=== PATIENT | female | born 1950 | race Caucasian/White ===

== ENCOUNTER 2019-09-24 18:40 | Inpatient (IN) | payer MEDICARE, MEDICAID ==
[~2019-09-24] VITALS: Ht 165.1 cm; Wt 54.4 kg
--- NOTE | 2019-09-24 19:15 | NUR ---
Dr. Gomez at bedside for MSE.
--- NOTE | 2019-09-24 19:30 | NUR ---
Patient refusing bloodwork, Xray, EKG. made aware.
--- NOTE | 2019-09-24 20:40 | NUR ---
Spoke with nursing casino operations supervisor of [facility] due to no labs and diagnostic work sent with the patient's file, states unable to access patient's chart and that medical records is closed until Thursday. ER MD made aware.
--- NOTE | 2019-09-24 20:50 | NUR ---
Dr. Gomez speaking with Dr. Molina of [facility].
--- NOTE | 2019-09-24 21:00 | NUR ---
Dr. Gomez on panel call with Greg Nicolas LUGGER. Patient accepted for admission [facility], diagnosis: altered mental status.
--- NOTE | 2019-09-24 21:38 | NUR ---
Pt provide urine sample, sent to lab.
[2019-09-24] MEDS ORDERED: QUETIAPINE FUMARATE 25 MG TABLET ONE (22:35)
[2019-09-24] MEDS ORDERED: QUETIAPINE FUMARATE 25 MG TABLET PO ONE (22:45)
--- NOTE | 2019-09-24 22:47 | NUR ---
Report given to Vickie GARCIA Medsurg.
--- NOTE | 2019-09-24 23:15 | NUR ---
RECEIVED PATIENT VIA GURNEY FROM ER. PATIENT IS A/O X2. UPSET WHY SHE IS HERE IN THE HOSPITAL. RECEIVED REPORT THAT PATIENT REFUSED, LABS/BLOOD WORK, EKG, ETC. ABIGAIL BHANDARI, NOTIFIED. PATIENT DENIES ANY PAIN OR DISCOMFORT. NO RESP. DISTRESS NOTED. NO HEPLOCK NOTED. PATIENT REFUSING FOR INSERTION. MD AWARE. 1:1 SITTER AT BEDSIDE FOR SAFETY. PATIENT IS HIGH AWOL RISK. ALL NEEDS ATTENDED. WILL CONTINUE TO MONITOR AND ASSESS.
[2019-09-24 23:45] VITALS: BP 174/82
[2019-09-24] MEDS ORDERED: MAGNESIUM HYDROXIDE 30 ML LIQUID UDC PO PRN (23:45)
[2019-09-24] MEDS ORDERED: HYDROCODONE/APAP 5-325MG TABLET PO PRN (23:45)
[2019-09-24] MEDS ORDERED: ONDANSETRON 4 MG/2 ML VIAL IV PRN (23:45)
[2019-09-24] MEDS ORDERED: HALOPERIDOL LACTATE 5 MG/1 ML VIAL IM PRN (23:45)
[2019-09-24] MEDS ORDERED: ACETAMINOPHEN 325 MG TABLET PO PRN (23:45)
[2019-09-24] MEDS ORDERED: TEMAZEPAM 15 MG CAPSULE PO PRN (23:45)
[2019-09-24] MEDS ORDERED: Z GUARD REMEDY PASTE 57 GM TUBE TOP PRN (23:45)
--- NOTE | 2019-09-24 23:45 | NUR ---
ABIGAIL-DENTAL NURSE AT BEDSIDE TO ASSESS PATIENT. PATIENTS BLOOD PRESSURE 174/83. DENTAL NURSE AT BEDSIDE TO TALK TO PATIENT. PATIENT IS REFUSING TO TAKE ANY MEDICATIONS OR LAB WORK. WILL CONTINUE TO MONITOR AND ASSESS.
[2019-09-25] MEDS ORDERED: LORAZEPAM 2 MG/1 ML VIAL IM PRN
--- NOTE | 2019-09-25 | NUR ---
PATIENT VERY AGITATED, VERY AGGRESSIVE AND BECAME COMBATIVE WITH SITTER AND STAFF WHEN APPROACHED. PATIENT IS DELUSIONAL. DR. MESA NOTIFED.
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
--- NOTE | 2019-09-25 00:15 | NUR ---
PATIENT GIVEN HALDOL 5MG IM AND ATIVAN 1MG IM PER LABORER SHIPYARD FOR SEVERE AGITATION. SITTER AT BEDSIDE. PATIENT STILL VERY DELUSION AND HAVING PARANOID IDEATIONS. BED ALARM ON. WILL CONTINUE TO MONITOR AND ASSESS.
--- NOTE | 2019-09-25 01:04 | NUR ---
PATIENT QUIET IN BED. SITTER AT BEDSIDE. WILL CONTINUE TO MONITOR AND ASSESS.
--- NOTE | 2019-09-25 01:15 | NUR ---
PATIENT REFUSING TO WEAR TELE MONITOR. PATIENT IS CONFUSED, STATING HER FAMILY WHO OWNS THE HOSPITAL IS GOING TO [place] ALL OF US. PATIENT IS IN AND OUT OF CONFUSION. VERY AGITATED WHEN APPROACHED. ALL NEEDS ATTENDED.
--- NOTE | 2019-09-25 01:37 | NUR ---
PATIENT ASLEEP IN BED. TELE MONITOR PLACED ON PATIENT, SB 58. WILL CONTINUE TO MONITOR AND ASSESS.
[2019-09-25 02:36] LABS: BASOPHILS % (AUTO) 0.6 % (0.0-2.0); EOSINOPHILS # (AUTO) 0.1 K/uL (0.0-0.7); EOSINOPHILS % (AUTO) 3.5 % (0.0-7.0); HEMATOCRIT 34.3 % (31.2-41.9); HEMOGLOBIN 11.5 g/dL (10.9-14.3); LYMPHOCYTES # (AUTO) 1.4 K/uL (20.0-40.0); LYMPHOCYTES % (AUTO) 38.7 % (20.5-51.5); MEAN CORPUSCULAR HEMOGLOBIN 27.7 uug (24.7-32.8); MEAN CORPUSCULAR HGB CONC 34 g/dL (32.3-35.6); MEAN CORPUSCULAR VOLUME 82.3 fL (75.5-95.3); MONOCYTES # (AUTO) 0.3 K/uL (2.0-10.0); NEUTROPHILS # (AUTO) 1.8 K/uL (1.8-8.9); NEUTROPHILS % (AUTO) 49.2 % (38.5-71.5); PLATELET COUNT (AUTO) 187 K/uL (179-408); RED BLOOD CELL COUNT(AUTO) 4.16 MIL/uL (3.63-4.92); WHITE BLOOD COUNT (AUTO) 3.6 K/uL (3.8-11.8)
[2019-09-25 02:42] LABS: BILIRUBIN,TOTAL 0.3 mg/dL (0.2-1.0); CREATININE 0.7 mg/dL (0.6-1.3); MAGNESIUM 1.9 mg/dL (1.8-2.4); PHOSPHOROUS 3.6 mg/dL (2.5-4.9); POTASSIUM 3.8 mmol/L (3.5-5.1)
[2019-09-25 05:00] VITALS: BP 107/53
[2019-09-25 05:16] LABS: THYROID STIMULATING HORMONE 3.816 mIU/mL (0.358-3.740)
--- NOTE | 2019-09-25 06:24 | NUR ---
PATIENT ASLEEP IN BED. SITTER AT BEDSIDE. VSS. WILL CONTINUE TO MONITOR.
[2019-09-25] MEDS ORDERED: PANTOPRAZOLE SODIUM 40 MG TABLET.DR PO SCH (07:00)
--- NOTE | 2019-09-25 07:20 | NUR ---
RECEIVED PATIENT IN BED COVERING HERSELF WITH SHEETS WITH 1:1 SITTER AT BEDSIDE. NO S/S OF ACUTE DISTRESS NOTED, SAFETY AND COMFORT PROVIDED AT ALL TIMES. WILL CONTINUE TO MONITOR.
[2019-09-25] MEDS ORDERED: METOPROLOL TARTRATE 25 MG TABLET PO SCH (09:00)
[2019-09-25] MEDS ORDERED: OLANZAPINE 5 MG TABLET PO SCH (09:00)
--- NOTE | 2019-09-25 09:30 | NUR ---
PHYSICAL THERAPY ATTEMPT BUT PATIENT REFUSED
[2019-09-25 10:00] VITALS: BP 153/62
--- NOTE | 2019-09-25 10:15 | NUR ---
PATIENT CONSUMED 100% OF BREAKFAST
--- NOTE | 2019-09-25 10:20 | NUR ---
EKG ATTEMPTED AND PATIENT REFUSED.
--- NOTE | 2019-09-25 11:31 | NUR ---
radiological technologist went and requested the patient for Duplex Venous Scan but the patient refused. RADHA Velasco noted. RADHA Velasco will call the tech if the patient changes her mind.
[2019-09-25] MEDS ORDERED: METO25TA6 PO (12:01)
--- NOTE | 2019-09-25 14:50 | NUR ---
RECEIVED DISCHARGE ORDER TO MHU , INSTRUCTION GIVEN AND VERBALIZED UNDERSTANDING, NO SOB NOTED AND NO C/O PAIN AT THIS TIME. BELONGINGS ACCOUNTED FOR AND SIGNED, ID BAND REMOVED. GAVE REPORT TO KAMILLE IN MHU, ESCORTED PATIENT TO MHU VIA WHEELCHAIR.
[2019-09-25] MEDS ORDERED: MIRTAZAPINE 15 MG TABLET PO SCH (21:00)
[2019-12-16] MEDS ORDERED: METO25TA6 PO ×2 (15:11→15:13)
[2019-12-17] MEDS ORDERED: ACET325T53 PO (13:37)
[2019-12-17] MEDS ORDERED: PANT40TA2 PO (13:37)
[2019-12-17] MEDS ORDERED: METO25TA6 PO (13:37)
[2019-12-17] MEDS ORDERED: AZIT250T13 PO (13:37)
== END 2019-09-25 14:50 | DRG 305 ==
LOC: ER 18:44 → MEDSURG3 22:43 → TELE3 23:55
PROVIDERS: ADMIT Hospitalist; ATTEND Hospitalist
DX: I16.9 Hypertensive crisis, unspecified (principal); E78.5 Hyperlipidemia, unspecified; Z59.0 Homelessness; R60.0 Localized edema; Z91.19 Patient's noncompliance with other medical treatment and regimen; Z91.14 Patient's other noncompliance with medication regimen; F32.9 Major depressive disorder, single episode, unspecified; I10 Essential (primary) hypertension
CPT/HCPCS: 36415; 70030-TC; 71045; 83735; 84100; 84443; 85025; 85610; 85730; 87086; 93005; A4663; G0378; J1630; J2060

== ENCOUNTER 2019-09-25 15:36 | Inpatient (IN) | payer MEDICARE, OTHER ==
[~2019-09-25] VITALS: Ht 157.5 cm; Wt 55.3 kg
[2019-09-25 15:00] VITALS: BP 138/79
--- NOTE | 2019-09-25 15:00 | NUR ---
Admit Note; Patient is a 69 year old female, brought in to the hospital by ambulance, admitted on a 5150 from [facility]. Patient is admitted on a 5150 as Danger to others. Per hold, Frequent calls were made 911 reporting false emergencies that patient believed are real. Call regarding rapes, kidnappings in progress and other reports that require lights and siren response. At times more than 20 calls per day were made. Patient has severe hallucinations, hears voices, and is paranoid. Upon face to face evaluation patient is irritable, delusional and noncompliant with the admission process. Patient has poor eye contact and mood is angry and demanding. Attention span is poor and patient is unable to follow simple instructions. Physically appears dirty and malodorous. Patient was oriented to the environment and received the patients rights handbook. VS are normal and pedal edema noted . Patient ambulatory with a steady gait. No acute issues or distress noted at this time.
--- NOTE | 2019-09-25 15:00 | NUR ---
Gps/Field Marketing Lead-Received from telemetry unit (3rd floor) via wheel chair, alert,oriented x 2 labile mood ,irritability during admission noted, unable to provide and get necessary informations.r/t to behavior , irritability ,yelling, angry affect., uncooperative during admission Patient came in with 3 large trash bags(belongings) , and 1 large black suit case, and a guitar will keep the the tub room for now . No banquet set up person provided, Patient is ambulatory noted steady gait.
[2019-09-25] MEDS ORDERED: BLOOD SUGAR DIAGNOSTIC 1 EACH STRIP VI ONE (15:45)
[2019-09-25] MEDS ORDERED: MAGNESIUM HYDROXIDE 30 ML LIQUID UDC PO PRN (15:45)
[2019-09-25] MEDS ORDERED: TEMAZEPAM 7.5 MG CAPSULE PO PRN (15:45)
[2019-09-25] MEDS ORDERED: ACETAMINOPHEN 325 MG TABLET PO PRN (15:45)
[2019-09-25] MEDS ORDERED: MAG HYDROX/AL HYDROX/SIMETH 30 ML LIQUID UDC PO PRN (15:45)
--- NOTE | 2019-09-25 17:00 | NUR ---
Gps/Lvnn- Patient refused blood sugar check. Needy, kept asking to look for numbners in the computer, informed if not urgent, will try to help later, pt. verbalized anger, wanting staff to hekp her right away.
[2019-09-25 21:12] VITALS: BP 125/66
--- NOTE | 2019-09-25 22:00 | NUR ---
received to care, lying in bed, guarded, but pleasant upon approach. cell phone with folding machine setter found in pts possession; she willingly gave it to staff to log in as valuables/contraband. she was isolative, staying in room, and not interacting with peers or staff. PRN medication offered for insomnia, but she refused. as of 2199, she is asleep. no distress noted. will continue to monitor closely
--- NOTE | 2019-09-26 06:00 | NUR ---
slept 8.75 hours, total. was up during the night, and had a sandwich. a sof 05 Addendum: 09/26/19 at 0627 by REGGIE RODRIGUEZ LVN as of 0600, she continues to sleep. no distress noted.
--- NOTE | 2019-09-26 06:32 | NUR ---
refused am lab draw.
[2019-09-26 07:30] VITALS: BP 145/70
--- NOTE | 2019-09-26 10:06 | NUR ---
Chief Mate consultation requested by Dr. Greg Nicolas on 09/25/2019 and received by this SW today, 09/26/2019. U bilingual social worker Vanesa to follow up.
[2019-09-26] MEDS: QUETIAPINE FUMARATE 25 MG TABLET PO SCH ×3 (10:41→21:11)
--- NOTE | 2019-09-26 11:29 | NUR ---
Social Work/Initial Discharge Plan: Patient is currently homeless and initially did not want any longterm placement. Patient may be considerate of an open (not locked) longterm facility or assisted. SW will continue to work with patient and MD to ensure a safe and proper discharge plan.
--- NOTE | 2019-09-26 11:30 | NUR ---
Social Work/Family Contact: Patient gave this proposal manager writer a phone number for a friend/Chiropractor by the name of Ariella Mcallister ([phone]). This proposal manager writer spoke with Ariella's human resources office assistant, Katerine, who stated that they have known the patient for over 30 years, and she indeed was Ariella's childhood friend. It was confirmed that the patient is homeless and has been having delusional and paranoid thoughts fro many years since her 's passing. Katerine stated that the patient's daughter at age 15 years from becoming ill due to the patient living on the streets with her daughter for several years. Katerine stated that the patient remarried after her and moved to [place] for some times and had another daughter with her and has not seen her since they . Katerine stated that the patient's siblings and two living daughters want nothing to do with her and have not spoken or seen her for a long time.
--- NOTE | 2019-09-26 11:35 | NUR ---
Social Work Note/Family Contact: Patient gave this production underwriter a couple phone numbers to call as support. 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 ([phone]): This number was for a friend named Chastity. 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 Chastity was unable to give any of the patent's family contacts due to not having them.
--- NOTE | 2019-09-26 11:40 | NUR ---
Social Work/Firearms Report (DOJ): Nailhead Setter completed and submitted a [employer] firearms report for 5150 danger to others certification. A copy of report has been placed in patient chart.
[2019-09-26 15:22] VITALS: BP 151/63
[2019-09-26 16:00] LABS: *BILIRUBIN,URIN NEGATIVE (NEGATIVE); *CLARITY,URINE CLEAR (CLEAR); *COLOR,URINE YELLOW (YELLOW); *KETONES,URINE NEGATIVE (NEGATIVE); *UROBILINOGEN,URINE 0.2 E.U./dl (NORMAL); LEUKOCYTE ESTERASE ,URINE TRACE (NEGATIVE); NITRITE, URINE NEGATIVE (NEGATIVE); PH,URINE 6.5 (5.0-8.0); UGLUCOSE NEGATIVE (NEGATIVE)
[2019-09-26 16:02] LABS: *BLOOD, URINE NEGATIVE (NEGATIVE)
[2019-09-26 16:12] LABS: BACTERIA,URINE NONE SEEN /HPF (NONE SEEN); MUCUS,URINE MODERATE /LPF (0-FEW); RBC,URINE 0-3 /HPF (0-3); SQUAMOUS EPITHELIAL CELL,UR MODERATE /HPF (NONE SEEN); URINE AMORPHOUS URATE FEW /HPF; WBC,URINE 0-3 /HPF (0-3)
[2019-09-26 16:15] LABS: *AMPHETAMINE, URINE NEGATIVE (NEGATIVE); *BARBITURATE, URINE NEGATIVE (NEGATIVE); *CANNABINOID, URINE NEGATIVE (NEGATIVE); *COCCAINE, URINE NEGATIVE (NEGATIVE); *OPIATE, URINE NEGATIVE (NEGATIVE); *PHENCYCLIDINE SCREEN,URINE NEGATIVE (NEGATIVE)
[2019-09-26] MEDS: METOPROLOL TARTRATE 25 MG TABLET PO SCH (20:49)
[2019-09-26 20:50] VITALS: BP 146/71
--- NOTE | 2019-09-26 22:00 | NUR ---
received to care, lying in bed, isolative, but pleasant when approached. she initially refused to take her seroquel, but eventually took it, with some encouragement. as of 2199, she remains awake, intermittently talking to herself. appears distracted by internal stimuli. currently eating a snack. no distress noted. will continue to monitor closely.
--- NOTE | 2019-09-26 23:55 | NUR ---
pt has been agitated, coming to the nurses station, every so often to report that her daughter in in the next room to her, requesting that they be moved together. reality orientation was attempted, but she remains fixed in her beliefs. PRN for insomnia or anxiety were offered, but she declined to take. currently lying in bed, talking to self. no distress noted.
--- NOTE | 2019-09-27 00:30 | NUR ---
pt is finally asleep. had been talking to self, since last entry. no distress noted.
--- NOTE | 2019-09-27 06:00 | NUR ---
slept 6.25 hours, total. continues to sleep. no distress noted.
[2019-09-27 07:30] VITALS: BP 124/55
[2019-09-27] MEDS: QUETIAPINE FUMARATE 25 MG TABLET PO SCH ×2 (08:39→21:31)
[2019-09-27] MEDS: METOPROLOL TARTRATE 25 MG TABLET PO SCH ×2 (08:42→21:30)
[2019-09-27 17:08] VITALS: BP 133/70
[2019-09-27 19:59] VITALS: BP 125/71
--- NOTE | 2019-09-27 22:00 | NUR ---
received to care, isolative in room, but pleasant upon approach. compliant with medications, and staff direction. behavior is appropriate for situation. no bizarre behavior observed. as of 2199, she appears to be asleep. no distress noted. will continue to monitor closely.
[2019-09-28 07:30] VITALS: BP 126/63
[2019-09-28] MEDS: QUETIAPINE FUMARATE 25 MG TABLET PO SCH ×2 (08:59→20:12)
[2019-09-28] MEDS: METOPROLOL TARTRATE 25 MG TABLET PO SCH ×3 (09:00→21:00)
--- NOTE | 2019-09-28 13:53 | NUR ---
Social Work/Individual Counseling: SW met with patient today and provided brief individual supportive counseling and reinforce positive problem-solving skills. Patient demonstrated a better understanding of how to approach a problem, such as, when in help to ask someone. Patient presents easily agitated. SW provided redirection and alternate problem solving skills in order to not get agitated if pt receives an answer they do not prefer. Patient listened and presented oriented to the conversation. SW will remain available to the patient.
[2019-09-28 16:00] VITALS: BP 130/78
[2019-09-28 20:00] VITALS: BP 153/77
[2019-09-28] MEDS: LORAZEPAM 1 MG TABLET PO PRN (20:12)
[2019-09-29 07:30] VITALS: BP 140/66
[2019-09-29] MEDS: QUETIAPINE FUMARATE 25 MG TABLET PO SCH ×2 (08:34→20:19)
[2019-09-29] MEDS: METOPROLOL TARTRATE 25 MG TABLET PO SCH ×2 (08:37→20:20)
--- NOTE | 2019-09-29 08:38 | NUR ---
Social Work/Coordination of Care: SANGEETA faxed patient's referral packet to the following facilities with attention to Michael; [facility] ([phone]), [facility] ([phone]), [facility] ([phone]), [facility] ([phone]). Addendum: 10/06/19 at 0834 by BRYSON LAZAR Patient is accepted to [facility] upon discharge.
[2019-09-29 16:00] VITALS: BP 138/72
--- NOTE | 2019-09-29 16:23 | NUR ---
Patient is frequently at the nurses station agitated, angry, and arguing with nursing staff. Patient has been using unit telephone to call 911 and other healthcare facilities to report that staff and other patients on this unit are harming her. Patient has paranoid delusions, she believes that staff is purposely keeping her locked on this unit. Patient is provided with multiple efforts at reality orientation but she becomes more angry, intrusive, and agitated with staff. Patient has no insight into her mental illness. Despite multiple efforts attempts at education about impulse control, patient is not receptive to education and not agreeable to education.
[2019-09-29] MEDS: LORAZEPAM 1 MG TABLET PO PRN (16:45)
[2019-09-29 20:48] VITALS: BP 136/74
[2019-09-30 07:30] VITALS: BP 138/68
[2019-09-30] MEDS: METOPROLOL TARTRATE 25 MG TABLET PO SCH ×2 (08:13→20:47)
[2019-09-30] MEDS: QUETIAPINE FUMARATE 25 MG TABLET PO SCH ×2 (08:13→20:46)
--- NOTE | 2019-09-30 14:48 | NUR ---
PT FREQUENTLY REQUESTING PHONE. DOES NOT APPEAR TO HAVE ANY FAMILY OR FRIENDS. FREQUENTLY CALLS, 911, [facility], AND [facility]. RECEIVED MULTIPLE CALLS FROM [facility] TO PLEASE DO WHAT STAFF CAN TO RESTRICT PHONE CALLS DUE TO FREQUENT AND HARASSING PHONE CALLS FROM PT. SPOKE TO DR. CAVAZOS AND RECEIVED DENIAL OF RIGHTS OF TELEPHONE AT THIS TIME. PT CONTINUES TO BE QUITE AGITATED, FIXATED IN CALLING HER "DAUGHTER MONICA", BUT HER NUMBER IS THE [facility].
[2019-09-30 16:00] VITALS: BP 147/55
--- NOTE | 2019-09-30 18:02 | NUR ---
Pt noted highly agitated at this time. Paranoid and delusional. Quite grandiose at this times. States she owns the hospital, owns [place], and that her half brothers want to kill her to take over the multiple properties she has. Requires frequent redirection. frequently visible throughout unit, making multiple arbitrary complaints.
[2019-09-30 19:45] VITALS: BP 145/76
[2019-10-01 07:30] VITALS: BP 133/56
[2019-10-01] MEDS: QUETIAPINE FUMARATE 25 MG TABLET PO SCH ×2 (09:01→21:22)
[2019-10-01] MEDS: METOPROLOL TARTRATE 25 MG TABLET PO SCH ×2 (09:01→21:23)
[2019-10-01 16:00] VITALS: BP 118/63
[2019-10-01 20:02] VITALS: BP 138/58
[2019-10-02 07:30] VITALS: BP 138/62
[2019-10-02] MEDS: QUETIAPINE FUMARATE 25 MG TABLET PO SCH ×2 (08:16→21:57)
[2019-10-02] MEDS: METOPROLOL TARTRATE 25 MG TABLET PO SCH ×2 (08:17→21:57)
--- NOTE | 2019-10-02 11:28 | NUR ---
PT QUITE AGITATED AT THIS TIME. PARANOID AND DELUSIONAL. DEMANDING TELEPHONE. EXPLAINED TO PT THEIR IS AN ORDER FOR DENIAL OF RIGHTS. VERBALLY ABUSIVE TO STAFF. WISHING SUPERVISOR JOINERS'S UNBORN BABY TO "BE BORN " AND "I CURSE YOUR CHILD TO BE BORN BLIND." REDIRECTED NEEDED. NO COMBATIVE BEHAVIOR AT THIS TIME.
[2019-10-02 16:16] VITALS: BP 126/55
[2019-10-02 20:00] VITALS: BP 141/71
[2019-10-03 07:30] VITALS: BP 143/79
[2019-10-03] MEDS: METOPROLOL TARTRATE 25 MG TABLET PO SCH ×2 (08:33→22:09)
[2019-10-03] MEDS: QUETIAPINE FUMARATE 25 MG TABLET PO SCH ×2 (08:33→22:09)
[2019-10-03 15:31] VITALS: BP 136/61
[2019-10-03 20:00] VITALS: BP 116/64
--- NOTE | 2019-10-04 06:45 | NUR ---
GPS: Pt.refused scheduled blood drawing this a.m. despite explanation of importance. Endorsed to incoming nurse.
[2019-10-04 07:45] VITALS: BP 124/54
[2019-10-04] MEDS: METOPROLOL TARTRATE 25 MG TABLET PO SCH ×2 (08:18→21:53)
[2019-10-04] MEDS: QUETIAPINE FUMARATE 25 MG TABLET PO SCH (08:19)
[2019-10-04] MEDS: LORAZEPAM 1 MG TABLET PO PRN (08:19)
--- NOTE | 2019-10-04 12:06 | NUR ---
Social Work/Individual Counseling: SW met with patient today and provided brief individual supportive counseling and reinforce positive problem-solving skills. Patient presented hyperverbal and delusional, stating she "saw dreams about where she is going after discharge and it is horrible". SW attempted to redirect the patient and become calm. Patient presented anxious about her discharge plan and unable to appropriately problem solve. SW was able to engage in a meaningful conversation with patient and help patient ask about the concerns she has regarding discharge rather have increased anxiety. SW will remain available to the patient.
[2019-10-04 15:48] VITALS: BP 112/60
[2019-10-04 20:34] VITALS: BP 151/73
[2019-10-04] MEDS ORDERED: QUETIAPINE FUMARATE 25 MG TABLET PO SCH (21:00)
[2019-10-04] MEDS: QUETIAPINE FUMARATE 100 MG TABLET PO SCH (21:53)
[2019-10-05 07:30] VITALS: BP 110/56
[2019-10-05] MEDS: METOPROLOL TARTRATE 25 MG TABLET PO SCH ×2 (08:23→20:10)
--- NOTE | 2019-10-05 08:31 | NUR ---
Social Work/Coordination of Care: SANGEETA faxed patient's referral packet to the following facilities: [facility] Attention to Jimmy Admin Coordinator (Patient is accepted to this facility) E- [facility] Attention to Layne Admin Coordinator Addendum: 10/06/19 at 1153 by BRYSON LAZAR Patient is not accepted to [facility] due to Behavioral issues. Spoke with Layne admin coordinator.
[2019-10-05] MEDS: QUETIAPINE FUMARATE 100 MG TABLET PO SCH ×3 (09:07→22:23)
--- NOTE | 2019-10-05 09:14 | NUR ---
received patient awake, alert and oriented x2. Bed is in low and locked position with bilateral upper side rails up. Patient is able to perform self care and ADL's independently. Patient able to ambulate independently. Patient is frequently at the nurses station anxious, agitated, and irritable. Patient noted with paranoid and grandiose delusions. She believes that staff is going to kill her and that she has thousands of dollars that staff has taken from her. Patient requires frequent redirection and reality orientation. Patient educated about impulse control, educated to communicate needs to staff appropriately.
--- NOTE | 2019-10-05 13:26 | NUR ---
Nursing staff found 1 pill wrapped in a napkin under the patient's mattress. MD notified. Staff to observe patient take the next doses of medication. Patient provided with education about importance of medication adherence and benefits of taking medication, but patient refusing to participate in education. Will continue to monitor.
[2019-10-05 16:00] VITALS: BP 135/60
[2019-10-05 20:16] VITALS: BP 145/66
--- NOTE | 2019-10-05 22:00 | NUR ---
received to care, isolative in room, talking to self, pleasant upon approach. is grandiose, believing that she is the cadworx piping designer of [employer]. is selective with her meds, agreeing only to take her metoprolol earlier, and would take her psychotropic meds at 2200. now, 2200, she is asleep. no distress noted. will continue to monitor closely.
--- NOTE | 2019-10-05 22:23 | NUR ---
pt is now awake, requesting her seroquel, which was given, at this time. will continue to monitor closely.
--- NOTE | 2019-10-05 23:00 | NUR ---
appears to be asleep. no distress noted.
[2019-10-06 07:30] VITALS: BP 126/61
[2019-10-06] MEDS: QUETIAPINE FUMARATE 100 MG TABLET PO SCH ×2 (08:49→22:02)
[2019-10-06] MEDS: METOPROLOL TARTRATE 25 MG TABLET PO SCH ×2 (08:50→20:28)
--- NOTE | 2019-10-06 10:00 | NUR ---
Gps/Fish Grader- Argumentative, with the staff, insisting she has $2000.00 i with her when she came in, wants staff to call Daan Reynaga to check what happened,. Informed patient we have list of whatever she came in with and she has copy of the belonging list. Limit phone use at this time.
--- NOTE | 2019-10-06 15:49 | NUR ---
Social Work/Substance Abuse Intervention: Patient was provided with a brief substance abuse intervention and provided with referrals to the [facility] Substance Abuse Self-helpline ([facility]) ([phone]), [facility] [address] [place] [address] ([phone]), [address] [place] [place] [address] ([phone]).
[2019-10-06 21:48] VITALS: BP 133/76
--- NOTE | 2019-10-06 22:30 | NUR ---
received to care, anxious and paranoid, highly visible on unit. was initially agitated at this check writer salesperson, believing that i had stolen her telephone, and 2 thousand dollars. she also accused me of telling the doctor that she had medication hidden in her bed, which she denied ever happening. she was compliant with medications. as of 2229, she is asleep. no distress noted. will continue to monitor closely.
[2019-10-07 07:30] VITALS: BP 147/63
[2019-10-07] MEDS: QUETIAPINE FUMARATE 100 MG TABLET PO SCH (09:00)
[2019-10-07 09:02] VITALS: BP 147/63
[2019-10-07] MEDS: METOPROLOL TARTRATE 25 MG TABLET PO SCH (09:02)
--- NOTE | 2019-10-07 10:16 | NUR ---
Social Work/Discharge Note: Patient will be discharged to [facility] [address] [place] [address] ([phone]). Patient will be provided transportation at 2:00pm via ambulance. Spoke with Carolyn the Admin Coordinator at the facility who states they are ready to accept the patient today. Patient is aware and agreeable with discharge plans. Patient is alert and oriented x4, is unable to plan for self-care however is willing to accept care at the facility. Patient denies any suicidal or homicidal ideation. Patient will follow-up at the facility with Dr. Everett Psychiatrist and Dr. King Major Case Detective. Rd Scientist faxed discharge packet to [facility] (fax: [phone]). Patient presents with calm mood and euthymic affect and shared she is looking forward to going to this new facility. Patients has no family or supportive contacts to notify of discharge plans. Addendum: 10/07/19 at 1019 by BRYSON LAZAR Patient has also signed the Homeless Patient Waiver Form and was provided with the homeless fci packet, which includes a list of emergency shelters, housing resources, drop in centers, and showers/hot meals centers. This also included the Homeless Information Hotline (260)-617-7649 or 211, [employer] for [employer] and [employer] [phone], and the [facility] ([phone]. Patient was also provided with outpatient mental health resources to [facility] Crisis Line , and the National Suicide Prevention Lifeline .
[2019-10-07] MEDS ORDERED: Z GUARD REMEDY PASTE 57 GM TUBE TOP SCH (10:30)
--- NOTE | 2019-10-07 14:25 | NUR ---
Gps/Canvas Shrinker-Called [facility] ([place], [place]) x2, left message to Neville will try to return call .
--- NOTE | 2019-10-07 15:00 | NUR ---
Gps/Certified Executive Chef- Called [facility] for the 3rd time, was able to talk to Carol Alberts, was able to give report. All belongings given back to patient,( $ 29.65 cents) yellow ring with purple stone.Patient iinsisting she has a total of $2,000.00 , informed patient she only came in with $29.65 , that staff are aware on admssion. Staff noted this am, pt. was holding $20.00 bill, staff unable to check where she got the money, staff claimed she hide it in her socks. Returned 2 phones and big thrash bags of stuffs, and black suit case , and guitar. Discharged in no distress, in good spirit. no complaints via ambulance. .
== END 2019-10-07 15:15 | DRG 885 ==
LOC: GPS 15:36
PROVIDERS: ADMIT Psychiatry & Neurology Psychiatry; ATTEND Hospitalist
DX: F29 Unspecified psychosis not due to a substance or known physiological condition (principal); I16.9 Hypertensive crisis, unspecified; Z59.0 Homelessness; E78.5 Hyperlipidemia, unspecified; I10 Essential (primary) hypertension; R60.0 Localized edema; Q07.00 Arnold-Chiari syndrome without spina bifida or hydrocephalus; K58.9 Irritable bowel syndrome, unspecified; Z91.19 Patient's noncompliance with other medical treatment and regimen; I70.0 Atherosclerosis of aorta; F22 Delusional disorders
CPT/HCPCS: 80307; 87086

== ENCOUNTER 2019-12-16 10:42 | Inpatient (IN) | payer MEDICARE, MEDICAID ==
[~2019-12-16] VITALS: Ht 154.9 cm; Wt 56.7 kg
--- NOTE | 2019-12-16 11:19 | NUR ---
PATIENT IS HERE FOR 5150 HOLD AND MEDICAL CLEARANCE. PATIENT IS REFUSING ALL TESTS. SHE IS PUSHING THE EKG MACHINE AWAY AND TAKING OFF THE LEADS. DR WATKINS NOTIFIED. EKG NOT DONE
[2019-12-16] MEDS ORDERED: HALOPERIDOL LACTATE 5 MG/1 ML VIAL ONE (11:24)
[2019-12-16] MEDS ORDERED: LORAZEPAM 2 MG/1 ML VIAL ONE (11:24)
[2019-12-16] MEDS ORDERED: LORAZEPAM 2 MG/1 ML VIAL IM ONE (11:30)
[2019-12-16] MEDS ORDERED: HALOPERIDOL LACTATE 5 MG/1 ML VIAL IM ONE (11:30)
--- NOTE | 2019-12-16 12:30 | NUR ---
patient is sleepy but srouses easy. She is cooperative now. 12 lead EKG done. I called lab to come draw blood for testing. Sp02 98% on RA.
[2019-12-16 12:54] LABS: BASOPHILS % (AUTO) 0.2 % (0.0-2.0); EOSINOPHILS % (AUTO) 0.8 % (0.0-7.0); HEMATOCRIT 32.2 % (31.2-41.9); HEMOGLOBIN 10.7 g/dL (10.9-14.3); LYMPHOCYTES # (AUTO) 1.2 K/uL (20.0-40.0); LYMPHOCYTES % (AUTO) 29.4 % (20.5-51.5); MEAN CORPUSCULAR HEMOGLOBIN 27.4 uug (24.7-32.8); MEAN CORPUSCULAR HGB CONC 33 g/dL (32.3-35.6); MEAN CORPUSCULAR VOLUME 82.6 fL (75.5-95.3); MONOCYTES # (AUTO) 0.4 K/uL (2.0-10.0); MONOCYTES % (AUTO) 8.6 % (0.0-11.0); NEUTROPHILS # (AUTO) 2.6 K/uL (1.8-8.9); PLATELET COUNT (AUTO) 201 K/uL (179-408); RED BLOOD CELL COUNT(AUTO) 3.89 MIL/uL (3.63-4.92); WHITE BLOOD COUNT (AUTO) 4.2 K/uL (3.8-11.8)
[2019-12-16 13:09] LABS: CARBON DIOXIDE 30 mmol/L (21-32); CHLORIDE 109 mmol/L (98-107); CREATININE 0.7 mg/dL (0.6-1.3); GLUCOSE 139 mg/dL (74-106); POTASSIUM 3.8 mmol/L (3.5-5.1); UREA NITROGEN, BLOOD 15 mg/dL (7-18)
[2019-12-16 13:12] LABS: ETHANOL < 3 MG/DL (0-0)
[2019-12-16 13:14] LABS: ALANINE AMINOTRANSFERASE 17 U/L (14-59); ALKALINE PHOSPHATASE 58 U/L (50-136); ASPARTATE AMINOTRANSFERASE 20 U/L (15-37); BILIRUBIN,DIRECT 0.1 mg/dL (0.0-0.2); BILIRUBIN,TOTAL 0.4 mg/dL (0.2-1.0); TOTAL PROTEIN, SERUM 7.4 g/dL (6.4-8.2)
[2019-12-16 13:15] LABS: ACETAMINOPHEN < 2.0 ug/mL (10-30)
[2019-12-16 13:19] LABS: MAGNESIUM 2.2 mg/dL (1.8-2.4)
[2019-12-16 13:22] LABS: THYROID STIMULATING HORMONE 3.144 mIU/mL (0.358-3.740)
--- NOTE | 2019-12-16 13:53 | NUR ---
urine sent to lab. patient ate a sandwich and drank water. Report given to Kirby in U
[2019-12-16 13:55] LABS: *BILIRUBIN,URIN NEGATIVE (NEGATIVE); *CLARITY,URINE CLEAR (CLEAR); *COLOR,URINE YELLOW (YELLOW); *KETONES,URINE TRACE (NEGATIVE); *UROBILINOGEN,URINE 0.2 E.U./dl (NORMAL); LEUKOCYTE ESTERASE ,URINE NEGATIVE (NEGATIVE); NITRITE, URINE NEGATIVE (NEGATIVE); UGLUCOSE NEGATIVE (NEGATIVE)
[2019-12-16 13:56] LABS: *BLOOD, URINE TRACE (NEGATIVE)
[2019-12-16 14:03] LABS: *AMPHETAMINE, URINE NEGATIVE (NEGATIVE); *BARBITURATE, URINE NEGATIVE (NEGATIVE); *CANNABINOID, URINE NEGATIVE (NEGATIVE); *COCCAINE, URINE NEGATIVE (NEGATIVE); *OPIATE, URINE NEGATIVE (NEGATIVE); *PHENCYCLIDINE SCREEN,URINE NEGATIVE (NEGATIVE); BACTERIA,URINE NONE SEEN /HPF (NONE SEEN); SQUAMOUS EPITHELIAL CELL,UR FEW /HPF (NONE SEEN); WBC,URINE 0-3 /HPF (0-3)
[2019-12-16 14:04] LABS: MUCUS,URINE MODERATE /LPF (0-FEW)
--- NOTE | 2019-12-16 14:36 | NUR ---
GPS ADMISSION NOTES : ADMITTING THIS 69-year-old female with a history of hypertension, psychosis presents with gradual onset, worsening, constant, moderate psychosis and delusions. Patient placed on 5150 by [place] [employer]. Patient was sleeping on a cardboard box and yelling at bystanders about trying to get her daughter. She was also screaming at cars in the street. Patient aggressive here, refusing tests, requiring sedation.patient arrived the unit on gurney accompanied by ER nurse, patient change her goen and went to her bed to sleep, patient was sedated from ER received IM shot Ativan 1mg and Haldol 5mg to manage her in the ER, patient refused to sign documents and went to sleep after her orientation to the unit, gave advisement and patients right handbook , put bed alarm and lowered the bed for safety, called and spoke with Dr. webster notifgretchen for the admission, orders made and carried out, will continue monitor
[2019-12-16] MEDS ORDERED: MAG HYDROX/AL HYDROX/SIMETH 30 ML LIQUID UDC PO PRN (14:45)
[2019-12-16] MEDS ORDERED: BLOOD SUGAR DIAGNOSTIC 1 EACH STRIP VI ONE (14:45)
[2019-12-16] MEDS ORDERED: ACETAMINOPHEN 325 MG TABLET PO PRN (14:45)
[2019-12-16] MEDS ORDERED: MAGNESIUM HYDROXIDE 30 ML LIQUID UDC PO PRN (14:45)
[2019-12-16] MEDS ORDERED: CLONAZEPAM 0.5 MG TABLET PO SCH (14:45)
[2019-12-16] MEDS ORDERED: TEMAZEPAM 7.5 MG CAPSULE PO PRN (14:45)
[2019-12-16] MEDS ORDERED: AZITHROMYCIN IV 500 MG in IV DEXTROSE 5% 250 ML IV ONE (16:15)
[2019-12-16] MEDS ORDERED: CLONAZEPAM 0.5 MG TABLET PO PRN (16:17)
[2019-12-16 17:03] LABS: FERRITIN 140 ng/mL (8-252); LACTATE DEHYDROGENASE 233 U/L (81-234)
[2019-12-16] MEDS ORDERED: METOPROLOL TARTRATE 25 MG TABLET PO SCH (21:00)
[2019-12-17] MEDS ORDERED: AZITHROMYCIN IV 250 MG in IV DEXTROSE 5% 250 ML IV SCH (09:00)
== END 2019-12-16 21:23 | disposition short-term general hospital (02) | DRG 885 ==
LOC: ER 10:42 → GPS 13:51
PROVIDERS: ADMIT Nurse Practitioner Acute Care; ATTEND Nurse Practitioner Acute Care
DX: F29 Unspecified psychosis not due to a substance or known physiological condition (principal); J18.9 Pneumonia, unspecified organism; E87.0 Hyperosmolality and hypernatremia; E44.0 Moderate protein-calorie malnutrition; D63.8 Anemia in other chronic diseases classified elsewhere; I10 Essential (primary) hypertension; Z59.0 Homelessness; F39 Unspecified mood [affective] disorder; R73.9 Hyperglycemia, unspecified; E88.09 Other disorders of plasma-protein metabolism, not elsewhere classified; F25.9 Schizoaffective disorder, unspecified; R60.9 Edema, unspecified; Z68.23 Body mass index [BMI] 23.0-23.9, adult; Z91.19 Patient's noncompliance with other medical treatment and regimen
CPT/HCPCS: 36415; 70030-TC; 71045; 80307; 80329; 83605; 83615; 83735; 84443; 85025; 85730; 87040; 93005; A4663; G0480; G0480-TC; J1630; J2060

== ENCOUNTER 2019-12-16 22:01 | Inpatient (IN) | payer MEDICARE, MEDICAID ==
[~2019-12-16] VITALS: Ht 157.5 cm; Wt 54.9 kg
--- NOTE | 2019-12-16 21:30 | NUR ---
Admitted a 69 years old patient from [facility] with diagnosis to rule out COVID. Patient alert to self only, withdrawn and refusing care. Calm when left alone. In no acute distress. No SOB or soughing noted at this time. Droplet precaution observed. Routine admission care plan. Plan of care initiated. Safety measure initiated. 1:1 sitter on site. Continue to monitor.
[2019-12-16] MEDS ORDERED: MAGNESIUM HYDROXIDE 30 ML LIQUID UDC PO PRN (22:15)
[2019-12-16] MEDS ORDERED: HYDROCODONE/APAP 5-325MG TABLET PO PRN (22:15)
[2019-12-16] MEDS ORDERED: LORAZEPAM 2 MG/1 ML VIAL IV PRN ×3 (22:15→23:30)
[2019-12-16] MEDS ORDERED: ACETAMINOPHEN 325 MG TABLET PO PRN (22:15)
[2019-12-16] MEDS ORDERED: AZITHROMYCIN IV 500 MG in IV DEXTROSE 5% 250 ML IV SCH (22:15)
[2019-12-16] MEDS ORDERED: ONDANSETRON 4 MG/2 ML VIAL IV PRN (22:15)
[2019-12-16] MEDS ORDERED: ZOLPIDEM 5 MG TABLET PO PRN (22:15)
[2019-12-16] MEDS ORDERED: Z GUARD REMEDY PASTE 57 GM TUBE TOP PRN (22:15)
--- NOTE | 2019-12-16 23:19 | NUR ---
Patient refusing to have IV line started even after teaching provided. Started getting agitated and threatening to walk out of the hospital. Insisting she does not have an infection and does not need any medication. CERTIFIED MARINE MECHANIC Ly made aware and order to give patient Ativan 2mg IM now. Will carry out order.
[2019-12-16] MEDS ORDERED: AZITHROMYCIN 500 MG VIAL IV ONE (23:26)
[2019-12-16] MEDS ORDERED: LORAZEPAM 2 MG/1 ML VIAL IM ONE ×2 (23:30→23:45)
--- NOTE | 2019-12-17 01:00 | NUR ---
Patient calmer and relax now. Able to place IV on right FA #22G. Will start Azithromycin ABX IV as ordered.
[2019-12-17 06:00] VITALS: BP 124/73
--- NOTE | 2019-12-17 06:16 | NUR ---
Patient alert to self only. In no acute distress. No SOB or coughing noted. Contact and droplet precaution maintained. No adverse reaction noted from IV ABX. IV site on right FA remains intact and patent. Safety measure maintained. 1:1 sitter on site.
[2019-12-17] MEDS ORDERED: PANTOPRAZOLE SODIUM 40 MG TABLET.DR PO SCH (07:00)
--- NOTE | 2019-12-17 08:00 | NUR ---
ALERT TO SELF ONLY CONFUSED DISORIENTED REMAIN ON ONE ON ONE SITTER RELATED TO BEING ON 5150 HOLD ORDERED NO S/S OF PAIN OR DISCOMFORTS AT THIS TIME NO COUGHS AFEBRILE STILL AWAITING FOR RESULTS OF THE COVID MADE COMFORTABLE WILL CONTINUE TO OBSERVE
--- NOTE | 2019-12-17 10:30 | NUR ---
PATIENT IS VERY AGITATED GETTING OUT OF BED DELUSIONAL UNABLE TO REDIRECT NOTED THAT PATIENT PULLED OUT HER IV HEPLOCK REINSERTED AND ATIVAN GIVEN ORDERED MADE COMFORTABLE
--- NOTE | 2019-12-17 11:00 | NUR ---
DR DUCKWORTH HERE AND AWARE THAT PATIENT WILL BE DISCHARGED TO [facility] TODAY STATED OKAY WITH NO NEW ORDERS AT THIS TIME.
--- NOTE | 2019-12-17 13:00 | NUR ---
CALLED MENTAL HEALTH UNIT AND REPORT GIVEN TO DHARMESH FOR CONTINUING CARE PATIENT WILL BE DISCHARGED TO MHU PER THE CHANNELER INSOLE.
--- NOTE | 2019-12-17 13:17 | NUR ---
PATIENT DISCHARGED BY W/CHAIR TO MHU WITH HER BELONGINGS MOST OF HER BELONGINGS ARE AT MHU WILL CONTINUE ON ATB FOR 4 MORE DOSES PATIENT IS CONFUSED DISORIENTED AND ALERT TO SELF ONLY AND UNABLE TO PARTICIPATE IN HER DISCHARGE PROCESS.
[2019-12-17] MEDS ORDERED: METOPROLOL TARTRATE 25 MG TABLET PO SCH (21:00)
[2019-12-17] MEDS ORDERED: AZITHROMYCIN IV 250 MG in IV DEXTROSE 5% 250 ML IV SCH (22:15)
== END 2019-12-17 13:17 | DRG 194 ==
LOC: MEDSURG3 22:01
PROVIDERS: ADMIT Nurse Practitioner Acute Care; ATTEND Nurse Practitioner Acute Care
DX: J15.9 Unspecified bacterial pneumonia (principal); E87.0 Hyperosmolality and hypernatremia; E44.0 Moderate protein-calorie malnutrition; Z59.0 Homelessness; D63.8 Anemia in other chronic diseases classified elsewhere; F17.210 Nicotine dependence, cigarettes, uncomplicated; I10 Essential (primary) hypertension; Z91.19 Patient's noncompliance with other medical treatment and regimen; E88.09 Other disorders of plasma-protein metabolism, not elsewhere classified; R73.9 Hyperglycemia, unspecified; R60.9 Edema, unspecified; F23 Brief psychotic disorder; F29 Unspecified psychosis not due to a substance or known physiological condition; F25.9 Schizoaffective disorder, unspecified; Z68.22 Body mass index [BMI] 22.0-22.9, adult
CPT/HCPCS: A4663; G0378; J0456; J2060; J7050; J7060

== ENCOUNTER 2019-12-17 14:17 | Inpatient (IN) | payer MEDICARE, OTHER ==
[~2019-12-17] VITALS: Ht 162.6 cm; Wt 55.8 kg
[~2019-12-17 14:17] MED LIST: ACET325T53 PO; AZIT250T13 PO; METO25TA6 PO; PANT40TA2 PO
[2019-12-17] MEDS ORDERED: ZOLPIDEM 5 MG TABLET PO PRN (14:45)
[2019-12-17] MEDS ORDERED: OLANZAPINE 10 MG VIAL IM ONE (14:45)
[2019-12-17] MEDS ORDERED: BLOOD SUGAR DIAGNOSTIC 1 EACH STRIP VI ONE (14:45)
[2019-12-17] MEDS ORDERED: ACETAMINOPHEN 325 MG TABLET PO PRN (14:45)
[2019-12-17] MEDS ORDERED: MAGNESIUM HYDROXIDE 30 ML LIQUID UDC PO PRN (14:45)
[2019-12-17] MEDS ORDERED: MAG HYDROX/AL HYDROX/SIMETH 30 ML LIQUID UDC PO PRN (14:45)
--- NOTE | 2019-12-17 14:45 | NUR ---
Admission Note; Received patient from medical floor where they r/o Coronavirus . Patient is a 69 year old female on a 5150 for GD. Upon face to face evaluation this patient is very psychotic. Unable to sit still, unreasonable, unable to contract for safety. Unstable when ambulating, need constant monitoring. Very energetic and confused. Difficult to redirect and reorient. Patient will not follow any instructions and is being disruptive to the unit. Vs are stable , pedal edema noted. Patient is yelling and refusing to take any medications by mouth, disrobing and banging on ro and tables. Dr. Child notified and order received for IM injection. Monitoring patient closely for safety and further behavior escalation. Per hold , this patient was found homeless, unable to care for self, paranoid and yelling at passing cars. Taken to [facility], the transferred to [facility]. Patient is also verbally abusive to staff at this time.
[2019-12-17 16:00] VITALS: BP 149/77
--- NOTE | 2019-12-17 17:18 | NUR ---
Patient receive IM injection of Zyprexa with very little effect. Patient continues to bang on table, yell, verbally and physically abusive to staff. Monitoring patient for safety and behavior escalation. Encouraging patient to be compliant with oral medications.
[2019-12-17] MEDS: ACETAMINOPHEN 325 MG TABLET PO PRN ×3 (17:28→23:02)
[2019-12-17] MEDS: LORAZEPAM 1 MG TABLET PO PRN ×3 (17:29→23:02)
[2019-12-17 20:00] VITALS: BP 140/80
[2019-12-17] MEDS: METOPROLOL TARTRATE 25 MG TABLET PO SCH ×2 (20:14→22:30)
[2019-12-18] MEDS ORDERED: HALOPERIDOL LACTATE 5 MG/1 ML VIAL IM STA (03:10)
[2019-12-18] MEDS ORDERED: LORAZEPAM 2 MG/1 ML VIAL IM STA (03:10)
--- NOTE | 2019-12-18 04:29 | NUR ---
A/O X1,ANXIOUS,RESTLESS,SUSPICIOUS,PARANOID,RESPONDING TO INTERNAL STIMULI, ARGUMENTATIVE,NEEDY,DEMANDING AND ATTENTION SEEKINGNON-COMPLIANT WITH MEDS AND CARE-REFUSED TO TAKE HS MED-OFFERED X3.CONTINUE YELLIN,SCREAMMING,VERBALLY ABUSIVE TOWARD STAFFS. WAS NOTIFIED TO GIVE IM MED.CARRIED OUT THEN GAVE TO PT WITH SL.EFF..WILL CONTINUE TO MONITOR
[2019-12-18] MEDS: PANTOPRAZOLE SODIUM 40 MG TABLET.DR PO SCH (06:16)
[2019-12-18 07:30] VITALS: BP 150/79
[2019-12-18] MEDS: METOPROLOL TARTRATE 25 MG TABLET PO SCH ×2 (09:00→21:00)
[2019-12-18] MEDS: AZITHROMYCIN 250 MG TABLET PO SCH (09:00)
--- NOTE | 2019-12-18 11:05 | NUR ---
Received patient this AM. asleep in bed . Arousable but tired. VS taken, patient refused to take PO medication at this time. Will allow patient to sleep d/t receiving an IM injection early this am. Monitoring closely for safety and possible behavior escalation. No acute acting out noted at this time. Continuing to encourage medication compliance.
[2019-12-18 16:00] VITALS: BP 135/69
[2019-12-18] MEDS: DIVALPROEX SPRINKLE 125 MG CAP.SPRINK PO SCH (17:00)
--- NOTE | 2019-12-18 18:13 | NUR ---
Patient up in chair and refusing to take medications. Assist to bathroom and then shower. Patient remains demanding and combative at times. Continuing to encourage medication compliance and to reorient to the situation. Monitoring for safety and behavior escalation.
[2019-12-18 20:31] VITALS: BP 118/65
[2019-12-18] MEDS: QUETIAPINE FUMARATE 100 MG TABLET PO SCH (21:00)
[2019-12-18] MEDS: LORAZEPAM 1 MG TABLET PO PRN (21:46)
--- NOTE | 2019-12-19 00:18 | NUR ---
GPS: Pt.now awake,anxious,restless,argumentative,easily agitated and trying to wander along the hallways. Poor insight to present situation. Ambien 5mg was offered but refused. Pt.continues to insist that she doesn't need meds. Assisted to the bathroom due to unsteady gait. Intrusive and sarcastic. Will continue to monitor behavior for further escalation.
[2019-12-19] MEDS: PANTOPRAZOLE SODIUM 40 MG TABLET.DR PO SCH (06:10)
--- NOTE | 2019-12-19 06:46 | NUR ---
GPS: Pt.slept 7 hrs.last night. Now awake,anxious,verbally abusive,easily agitated when being re-directed. Kept near nurses station for safety due to poor safety awareness. Will continue to monitor.
[2019-12-19 07:30] VITALS: BP 123/64
[2019-12-19] MEDS: DIVALPROEX SPRINKLE 125 MG CAP.SPRINK PO SCH ×3 (08:09→17:00)
[2019-12-19] MEDS: QUETIAPINE FUMARATE 100 MG TABLET PO SCH ×2 (08:10→20:39)
[2019-12-19] MEDS: METOPROLOL TARTRATE 25 MG TABLET PO SCH ×2 (08:10→20:39)
[2019-12-19] MEDS: AZITHROMYCIN 250 MG TABLET PO SCH (08:10)
--- NOTE | 2019-12-19 09:43 | NUR ---
Social Work Initial Discharge Plan: Patient is currently homeless and was from [facility] ([phone]). This poem writer will contact Kate delaney ([phone]) to see if patient is welcomed back upon discharge. Patient does not have any family members to contact. meat counter worker will continue to work with patient and MD to ensure a safe and proper discharge plan.
--- NOTE | 2019-12-19 09:44 | NUR ---
Social Work Family Contact: Patient does not have any family members at this moment.
--- NOTE | 2019-12-19 11:39 | NUR ---
Social Work Firearms Report ([employer]): Payroll Secretary completed and submitted a [employer] firearms report for 5150 grave disability certification. A copy of report has been placed in patient chart.
--- NOTE | 2019-12-19 11:44 | NUR ---
GPS: Patient refuse morning meds except BP medicine metoprol. Patient encourage to take medicine, education given but still refusing. not in distress. Patient remain calm in chair. will continue monitor
[2019-12-19 15:11] VITALS: BP 127/61
--- NOTE | 2019-12-19 15:50 | NUR ---
SANGEETA Discharge Planning: SANGEETA faxed patient's referral packet to [facility] to Kate for review and they stated that in order to accept the patient they require a COVID-19 test done.
[2019-12-19 20:32] VITALS: BP 123/61
[2019-12-20] MEDS: PANTOPRAZOLE SODIUM 40 MG TABLET.DR PO SCH (06:32)
[2019-12-20 07:30] VITALS: BP 160/93
--- NOTE | 2019-12-20 07:43 | NUR ---
Received patient in room, patient awake in no distress. Patient refused lab works.
[2019-12-20] MEDS: HALOPERIDOL LACTATE 10 MG/5 ML ORAL SOLUTION UDC PO SCH ×4 (09:00→17:00)
[2019-12-20] MEDS: AZITHROMYCIN 250 MG TABLET PO SCH ×2 (09:00→09:49)
[2019-12-20] MEDS: DIVALPROEX SPRINKLE 125 MG CAP.SPRINK PO SCH ×4 (09:48→18:40)
[2019-12-20] MEDS: METOPROLOL TARTRATE 25 MG TABLET PO SCH ×2 (09:48→21:06)
--- NOTE | 2019-12-20 13:19 | NUR ---
Social Work Individual Therapy: vegetable worker met with patient for brief counseling to address patient's combative and aggressive behavior. Patient is verbally abusive towards this tech writer and is unable to have meaningful conversation. Patient is fixated on leaving and was tearful with this tech writer. Patient states that everyone is against her and that they want her to "". This tech writer actively listened and comforted the patient.
[2019-12-20 16:39] VITALS: BP 109/60
--- NOTE | 2019-12-20 16:46 | NUR ---
Patient is AAO x 1-2, with episodes of forgetfulness noted. No SOB or any acute distress noted. Vital signs stable for patient. Patient noted getting angry at times but cooperative with care. Patient is non compliant with meds and only wants to tker BP meds. offered and explained x 3 but still refused by stating "I want the white small pill". patient also refused her 5pm medication. Patient cooperative with care for most of the shift, non-aggressive. All other needs attended, safety measures in place and will continue with care.
--- NOTE | 2019-12-20 18:19 | NUR ---
Patient seen by Dr. Child and patient agreed to take all her 5pm medications and tolerated well.
[2019-12-20 20:23] VITALS: BP 142/62
[2019-12-21] MEDS: PANTOPRAZOLE SODIUM 40 MG TABLET.DR PO SCH (06:12)
[2019-12-21 07:30] VITALS: BP 111/61
[2019-12-21] MEDS: METOPROLOL TARTRATE 25 MG TABLET PO SCH ×2 (08:43→20:20)
[2019-12-21] MEDS: DIVALPROEX SPRINKLE 125 MG CAP.SPRINK PO SCH ×3 (08:47→18:00)
[2019-12-21] MEDS: AZITHROMYCIN 250 MG TABLET PO SCH (08:47)
--- NOTE | 2019-12-21 09:00 | NUR ---
PATIENT REFUSED EKG. NURSE NOTIFIED.
[2019-12-21] MEDS: HALOPERIDOL LACTATE 10 MG/5 ML ORAL SOLUTION UDC PO SCH ×2 (10:03→17:00)
--- NOTE | 2019-12-21 10:17 | NUR ---
Patient refused AM medications and refused the haldol, states that she only takes the blood pressure medication. offer again and explain the risk and benefits of the medication , patient still refuse.
[2019-12-21 16:00] VITALS: BP 123/65
[2019-12-21] MEDS: risperiDONE 0.5 MG TABLET PO SCH (20:19)
[2019-12-21 20:36] VITALS: BP 138/63
--- NOTE | 2019-12-21 22:00 | NUR ---
received to care, ambulating about the unit, anxious, but pleasant upon approach. compliant with medications (metroprolol and risperdal). interacts minimally with peers. as of 2199, she appears to be asleep. no distress noted. will continue to monitor closely.
--- NOTE | 2019-12-22 06:00 | NUR ---
slept 5.5 hours, total. continues to sleep. no distress noted.
[2019-12-22] MEDS: PANTOPRAZOLE SODIUM 40 MG TABLET.DR PO SCH (06:45)
[2019-12-22 07:30] VITALS: BP 129/66
[2019-12-22] MEDS: METOPROLOL TARTRATE 25 MG TABLET PO SCH ×2 (08:53→20:24)
[2019-12-22] MEDS: risperiDONE 0.5 MG TABLET PO SCH ×2 (08:53→20:24)
[2019-12-22] MEDS: DIVALPROEX SPRINKLE 125 MG CAP.SPRINK PO SCH ×2 (08:53→17:12)
--- NOTE | 2019-12-22 14:57 | NUR ---
Received patient this am, awake, alert and oriented. VS stable. Compliant with psych medications. Patient has been demanding and needy today with multiple requests. Argumentative with most encounters. No acute behavior outbursts so far today, but patient appears edgy. Continuing to provide a safe environment and have meaningful conversation when patient is open to talk.
[2019-12-22 16:00] VITALS: BP 151/71
[2019-12-22 20:27] VITALS: BP 158/71
--- NOTE | 2019-12-22 22:00 | NUR ---
received to care, mostly isolative, but pleasant upon approach. compliant with medications and staff direction. no interactions with peers. remains calm, and cooperative. as of 2200, she appears to be asleep. no distress noted. will continue to monitor closely.
--- NOTE | 2019-12-23 06:00 | NUR ---
slept 7.0 hours, total. assisted with am care, and shower. no distress noted.
[2019-12-23] MEDS: PANTOPRAZOLE SODIUM 40 MG TABLET.DR PO SCH (06:15)
[2019-12-23 07:30] VITALS: BP 134/68
[2019-12-23] MEDS: METOPROLOL TARTRATE 25 MG TABLET PO SCH ×2 (08:57→20:11)
[2019-12-23] MEDS: DIVALPROEX SPRINKLE 125 MG CAP.SPRINK PO SCH ×2 (08:57→17:52)
[2019-12-23] MEDS: risperiDONE 0.5 MG TABLET PO SCH ×2 (08:57→20:11)
--- NOTE | 2019-12-23 11:38 | NUR ---
Received patient this am, awake alert. VS are stable. Patient has been medication compliant but argumentative about almost everything. Very demanding and aggressive at times. Patient is paranoid and does not believe what the staff or Doctors are telling her. Continuing to reorient patient to the reality of the situation, educate patient on the importance of compliance and encourage appropriate behaviors.
--- NOTE | 2019-12-23 15:09 | NUR ---
Social Work Individual Therapy: recycle worker met with patient for brief individual counseling to address patient's combative and aggressive behavior. Patient has been compliant with her care and is calm and pleasant upon approach. Patient is able to engage in a meaningful conversation. Patient is observed to be smiling and saying things such as, "I love everyone, you are so nice". SW provided supportive counseling and active listening.
[2019-12-23 15:24] VITALS: BP 111/62
[2019-12-23 20:17] VITALS: BP 131/84
--- NOTE | 2019-12-23 23:00 | NUR ---
received to care, pleasant, but argumentative at times, intrusive with care of peers. follows redirection, but becomes verbally hostile, when limits are set. compliant with medications, and staff direction. as of 2299, she appears to be asleep. no distress noted. will continue to monitor closely.
--- NOTE | 2019-12-24 06:00 | NUR ---
slept 6.0 hours, total. continues to sleep. no distress noted.
[2019-12-24] MEDS: PANTOPRAZOLE SODIUM 40 MG TABLET.DR PO SCH (06:38)
[2019-12-24 07:30] VITALS: BP 135/61
[2019-12-24] MEDS: risperiDONE 0.5 MG TABLET PO SCH ×2 (08:58→20:29)
[2019-12-24] MEDS: DIVALPROEX SPRINKLE 125 MG CAP.SPRINK PO SCH ×2 (08:58→16:42)
[2019-12-24] MEDS: METOPROLOL TARTRATE 25 MG TABLET PO SCH ×2 (09:06→20:29)
[2019-12-24 15:49] VITALS: BP 115/61
--- NOTE | 2019-12-24 18:56 | NUR ---
Patient is AAO x 1-2 with episodes of confusion and forgetfulness noted. NO acute distress or SOB noted. Patient is able to express needs, patient also noted with outbursts and screaming and getting upset with staff while care is being provided. patient active throughout day, also participated with activities. Patient very aware with medications and was able to take all due meds. All other needs attended, safety measures in place, bed on the lowest position and will continue with care.
[2019-12-24 20:30] VITALS: BP 120/71
--- NOTE | 2019-12-25 05:40 | NUR ---
Received Pt in the hallway, A+Ox3. Presents with episodes of irritability and agitation. Pt was argumentative and oppositional, suspicious and paranoid of staff. Denies pain, VS stable. Shower given this morning. Slept 7.5 hours.
[2019-12-25] MEDS: PANTOPRAZOLE SODIUM 40 MG TABLET.DR PO SCH (06:08)
[2019-12-25 07:30] VITALS: BP 120/70
[2019-12-25] MEDS: DIVALPROEX SPRINKLE 125 MG CAP.SPRINK PO SCH ×2 (08:35→17:28)
[2019-12-25] MEDS: risperiDONE 0.5 MG TABLET PO SCH ×2 (08:35→20:46)
[2019-12-25] MEDS: METOPROLOL TARTRATE 25 MG TABLET PO SCH ×2 (08:36→20:45)
--- NOTE | 2019-12-25 12:30 | NUR ---
Received patient this am. Awake, alert and oriented. Medication compliant. Patient slightly paranoid, but seems to be improving. VS stable, denies pain. Patient noted to be very intrusive in other patients business and needs redirection and set boundaries. Monitoring for behavior escalation and any other problems. Frequent rounding being done to promote a safe environment.
[2019-12-25 16:15] VITALS: BP 106/56
[2019-12-25 20:08] VITALS: BP 129/64
--- NOTE | 2019-12-25 22:28 | NUR ---
GPS/PT VERY CONFUSE WITH EPISODE OF FOCUSING ON PRESIDENT NIA. PT DELUSIONAL AND LOOSE ASSOCIATION. PT IS AMBULATORY AND CONSTANTLY WALKING FROM ROOM TO TV ROOM AND NURSING STATION. PT ALSO INTRUSIVE TRYING TO HELP OTHER PT'S BUT NO AGGRESSION AT THIS TIME. CONTINUE REDIRECTING AND REORIENT TO REALITY. COOPERATIVE WITH ROUTINE MEDICATION, DENIED THOUGHT OF HURTING SELF OR OTHERS.
--- NOTE | 2019-12-26 06:25 | NUR ---
PT WAS VERY RESTLESS, OVER CONCERN ABOUT ROOMMATE AND OTHER PTS. PT WAS PACING BACK AND FORTH FROM ROOM TO NURSING STATION AND SOME TIMES TO OTHER PTS ROOM. OFFER SLEEPING MED OR ATIVAN BUT PT REFUSED. SLEPT 2.30MINS AND NOW RESTING.
[2019-12-26] MEDS: PANTOPRAZOLE SODIUM 40 MG TABLET.DR PO SCH (06:42)
[2019-12-26 07:30] VITALS: BP 146/59
[2019-12-26] MEDS: METOPROLOL TARTRATE 25 MG TABLET PO SCH ×2 (08:32→20:06)
[2019-12-26] MEDS: risperiDONE 0.5 MG TABLET PO SCH ×2 (08:33→20:06)
[2019-12-26] MEDS: DIVALPROEX SPRINKLE 125 MG CAP.SPRINK PO SCH ×2 (08:33→17:53)
--- NOTE | 2019-12-26 09:58 | NUR ---
Social Work Individual Therapy: plate worker helper met with patient for brief individual counseling. Patient expressed her concerns about her discharge and her apprehension. SW assured patient that she will have a penitentiary facility in place for her to go to, patient prefers [facility] ([phone]). SANGEETA is currently working with patient's acceptance at [facility]. Patient then began to share about her 's "killing" in the and how her brothers took [place] away from her and are after her. SW redirected patient and helped her focus on more positive things and to block out the negative thoughts. Patient was receptive and more calm. Patient then decided to go to the [facility] area.
--- NOTE | 2019-12-26 10:40 | NUR ---
SANGEETA Coordination of Care: SANGEETA faxed patient's updated progress notes to [facility] per their request for review ).
--- NOTE | 2019-12-26 11:43 | NUR ---
SANGEETA Coordination of Care: SANGEETA received a call from Carolyn ([phone]) at [facility] stating that they cannot accept the patient to their facility. SANGEETA faxed patient's referral packet to Michael at the following facilities; [facility] ([phone]), [facility] ([phone]), [facility] ([phone]), [facility] ([phone]).
[2019-12-26 15:12] VITALS: BP 114/68
[2019-12-26] MEDS: LORAZEPAM 1 MG TABLET PO PRN (20:06)
[2019-12-26 20:31] VITALS: BP 108/50
--- NOTE | 2019-12-27 05:00 | NUR ---
Received Pt in the hallway, A+Ox3. Pt presents with very bright affect this this, singing around the unit and hyperverbal with staff and peers. Pt is intrusive with the care of other patients and requires frequent reminding of personal boundaries. Compliant with medications with prompting. Denies pain, VS stable. Refused shower this morning.
[2019-12-27] MEDS: PANTOPRAZOLE SODIUM 40 MG TABLET.DR PO SCH (06:03)
--- NOTE | 2019-12-27 06:06 | NUR ---
Pt refused AM Protonix. Risks and benefits explained.
[2019-12-27 07:30] VITALS: BP 124/53
[2019-12-27] MEDS: METOPROLOL TARTRATE 25 MG TABLET PO SCH ×2 (08:23→20:20)
[2019-12-27] MEDS: risperiDONE 0.5 MG TABLET PO SCH ×2 (08:23→20:20)
[2019-12-27] MEDS: DIVALPROEX SPRINKLE 125 MG CAP.SPRINK PO SCH ×2 (08:23→17:54)
--- NOTE | 2019-12-27 09:31 | NUR ---
Received patient this am . Awake, alert and oriented. Patient is medication compliant. Refused breakfast. Ambulatory in [place], gait steady. Plan to discharge patient tomorrow. No acute behavioral issues noted, continuing to monitor for safety.
[2019-12-27 16:00] VITALS: BP 175/65
[2019-12-27 20:15] VITALS: BP 146/72
--- NOTE | 2019-12-27 22:29 | NUR ---
GPS/RECEIVED PT IN BED RESTING, DENIED PAIN OR DISCOMFORT AND DENIED THOUGHT OF HARMING SELF OR OTHERS. PT WAS NOTED BEING VERY LOUD AND YELLING AT NURSES AT TIME REQUESTING PHONE. PT ALSO VERY INTRUSIVE, GOING INTO OTHER PTS ROOM AND TOUCHING STUFFS, REMOVING PHONE FROM A PT EAR WHILE SHE WAS TALKING. REDIRECT AND REORIENT TO REALITY. PT IS COOPERATIVE WITH MEDICATIONS. WILL CONTINUE TO REMIND OR REDIRECT. ANTICIPATING CHANGES AND 15 MINS HEAD COUNT WILL CONTINUE.
[2019-12-28] MEDS: PANTOPRAZOLE SODIUM 40 MG TABLET.DR PO SCH ×2 (06:32→06:39)
--- NOTE | 2019-12-28 06:46 | NUR ---
PT WAS MONITOR DURING NIGHT AND NOTED SOME EPISODE OF AWAKE AND WALKING AROUND ASKING FOR FOOD. PT SLEPT UP TO 5.15MINS.
[2019-12-28 07:30] VITALS: BP 122/58
[2019-12-28] MEDS: DIVALPROEX SPRINKLE 125 MG CAP.SPRINK PO SCH ×2 (08:46→17:20)
[2019-12-28] MEDS: risperiDONE 0.5 MG TABLET PO SCH ×2 (08:46→20:05)
[2019-12-28] MEDS: METOPROLOL TARTRATE 25 MG TABLET PO SCH ×2 (08:47→20:06)
--- NOTE | 2019-12-28 10:19 | NUR ---
Received patient in hallway asking when she is going to be discharged. When patient was informed tomorrow , patient got very angry and aggressive, yelling at this nurse. Poor impulse control noted. Patient continues to be delusional and paranoid. Patients mood in labile today so far. Continuing to monitor for behavior escalation and safety. Also noted is that this patient is intrusive of personal space with staff and other patients.
[2019-12-28 16:06] VITALS: BP 121/43
--- NOTE | 2019-12-28 18:00 | NUR ---
Patient is very paranoid and intrusive tonight. Constantly pacing and calling people " killers and liers ". Complaining about everything and refuses to take PRN medications. Continuing to attempt reality based conversations . Patient needs reinforcement . Monitoring for behavior escalation.
[2019-12-28 20:38] VITALS: BP 139/73
[2019-12-28] MEDS: LORAZEPAM 1 MG TABLET PO PRN (21:58)
--- NOTE | 2019-12-28 22:30 | NUR ---
received to care, highly visible on unit, intrusive with peers, but directable. compliant with medications, and staff direction. PRN ativan was given for anxiety, at 2157. as of 2229, she appears to be asleep. no distress noted. will continue to monitor closely.
--- NOTE | 2019-12-29 06:00 | NUR ---
slept 6.25 hours, total. continues to sleep. no distress noted.
[2019-12-29] MEDS: PANTOPRAZOLE SODIUM 40 MG TABLET.DR PO SCH (06:56)
[2019-12-29 07:50] VITALS: BP 124/49
--- NOTE | 2019-12-29 08:05 | NUR ---
SANGEETA Discharge Note: Patient will be discharged today to [facility] [address] [place] [address] ([phone]). Patient will be provided ambulance transportation at 11AM. Spoke with Reena, client service coordinator at the facility who stated they are ready to accept the patient today. Patient is aware and agreeable with discharge plans. Patient presents with appropriate mood and full range affect. Patient denies suicidal or homicidal ideation. Patient will be following up with psychiatrist Dr. Everett and housing property manager Dr. King at the facility. Patient signed the homeless waiver form and a copy has been placed in the chart. provided patient with a copy of the [facility] homeless directory which provides information on locations for hot meals, sack lunches, food pantries, and showers. SANGEETA provided a list of mental health clinics: [facility] [address] [place] [address], ; [facility] [address] [place] [address], ; [facility] [address] [place] [address], ; a list of medical clinics: [facility] [address], [place]. [place], ; [facility] [address] [facility] [place] [address]; [facility] [address] [facility] [place] [address], ; and a list of substance abuse programs: [facility] Substance Abuse Self-helpline ; [facility] ; [facility] ; [facility] ; [facility] [place] ; [facility] [phone]; [facility] [phone]. Patient was also provided with outpatient mental health resources to [facility] Crisis Line , and the National Suicide Prevention Lifeline .
[2019-12-29] MEDS: DIVALPROEX SPRINKLE 125 MG CAP.SPRINK PO SCH (09:19)
[2019-12-29 09:20] VITALS: BP 124/49
[2019-12-29] MEDS: METOPROLOL TARTRATE 25 MG TABLET PO SCH (09:20)
[2019-12-29] MEDS: risperiDONE 0.5 MG TABLET PO SCH (09:20)
[2019-12-29] MEDS: LORAZEPAM 1 MG TABLET PO PRN (11:32)
--- NOTE | 2019-12-29 13:30 | NUR ---
pt is being discharged to [facility]. Pt is aware, willing to go. VS are stable. all belonging returned, pt refused to sign paterwork.
== END 2019-12-29 15:08 | DRG 885 ==
LOC: GPS 14:17
PROVIDERS: ADMIT Psychiatry & Neurology Psychiatry; ATTEND Nurse Practitioner Acute Care
DX: F25.9 Schizoaffective disorder, unspecified (principal); J18.9 Pneumonia, unspecified organism; E87.0 Hyperosmolality and hypernatremia; E44.0 Moderate protein-calorie malnutrition; I10 Essential (primary) hypertension; Z59.0 Homelessness; Z87.891 Personal history of nicotine dependence; E88.09 Other disorders of plasma-protein metabolism, not elsewhere classified; Z91.19 Patient's noncompliance with other medical treatment and regimen; Z68.21 Body mass index [BMI] 21.0-21.9, adult; F29 Unspecified psychosis not due to a substance or known physiological condition; R73.9 Hyperglycemia, unspecified; J44.9 Chronic obstructive pulmonary disease, unspecified; F39 Unspecified mood [affective] disorder
CPT/HCPCS: 71045; J1630; J2060; J2358; Q0144